=== PATIENT | female | born 1995 | race Caucasian/White ===

== ENCOUNTER 2017-01-06 05:04 | Emergency (ER) | payer OTHER ==
[2017-01-06 06:57] LABS: CALCIUM 9.6 mg/dL (8.5-10.1); CARBON DIOXIDE 28.1 mmol/L (21-32); CHLORIDE SERUM 102 mmol/L (98-107); CREATININE SERUM 0.9 mg/dL (0.6-1.0); GFR1 > 60 mL/min; GLUCOSE SERUM 81 mg/dL (74-106); POTASSIUM SERUM 3.6 mmol/L (3.5-5.1); SODIUM SERUM 141 mmol/L (136-145)
[2017-01-06 07:01] LABS: ALBUMIN 3.7 g/dL (3.4-5.0); ALKALINE PHOSPHATASE 74 U/L (46-116); ALT/SGPT 18 U/L (14-59); AST/SGOT 15 U/L (15-37); BILIRUBIN TOTAL 0.4 mg/dL (0.20-1.00)
[2017-01-06 07:02] LABS: BASOPHIL % 0.4 % (0-2); PLATELET COUNT 259 x10^3mcL (130-400)
[2017-01-06 07:04] LABS: RED CELL DISTRIBUTION WIDTH 14.8 % (11.5-14.5)
[2017-01-06 07:23] VITALS: BP 114/79
== END 2017-01-06 07:27 | disposition home or self-care (01) ==
LOC: ED 05:04
PROVIDERS: Emergency Medicine
DX: N39.0 Urinary tract infection, site not specified (principal); R11.10 Vomiting, unspecified
CPT/HCPCS: J1885; J2405; J7030

== ENCOUNTER 2017-03-07 12:30 | Emergency (ER) | payer OTHER ==
[~2017-03-07] VITALS: Ht 160 cm; Wt 71.2 kg
[2017-03-07 12:54] VITALS: BP 123/76; Ht 160 cm; Wt 71.2 kg
== END 2017-03-07 16:38 | disposition left against medical advice (07) ==
LOC: ED 12:30
DX: Z53.21 Procedure and treatment not carried out due to patient leaving prior to being seen by health care provider (principal)

== ENCOUNTER 2017-03-18 02:56 | Inpatient (IN) | payer OTHER ==
[~2017-03-18] VITALS: Ht 160 cm; Wt 70.8 kg
[2017-03-18 03:24] VITALS: Ht 160 cm; Wt 70.8 kg
[2017-03-18 04:40] LABS: BASOPHIL % 0.7 % (0-2); PLATELET COUNT 291 x10^3mcL (130-400); RED CELL DISTRIBUTION WIDTH 14.1 % (11.5-14.5)
[2017-03-18 05:17] LABS: ALBUMIN 4.2 g/dL (3.4-5.0); ALKALINE PHOSPHATASE 56 U/L (46-116); ALT/SGPT 19 U/L (14-59); AST/SGOT 16 U/L (15-37); BILIRUBIN TOTAL 0.7 mg/dL (0.20-1.00); CALCIUM 9.3 mg/dL (8.5-10.1); CARBON DIOXIDE 26.4 mmol/L (21-32); CHLORIDE SERUM 105 mmol/L (98-107); CREATININE SERUM 0.9 mg/dL (0.6-1.0); GFR1 > 60 mL/min; GLUCOSE SERUM 115 mg/dL (74-106); LIPASE 130 IU/L (73-393); SODIUM SERUM 143 mmol/L (136-145); TOTAL PROTEIN, SERUM 8.2 g/dL (6.4-8.2)
[2017-03-18 05:22] LABS: POTASSIUM SERUM 2.6 mmol/L (3.5-5.1)
[2017-03-18 09:15] LABS: MAGNESIUM 2.1 mg/dL (1.8-2.4); PHOSPHOROUS 3.1 mg/dL (2.5-4.9)
[2017-03-18 09:17] LABS: CHOLESTEROL/HDL RATIO 2.5
[2017-03-18 09:31] LABS: FREE T4 1.41 ng/dL (0.76-1.46); FREE THYROXINE INDEX 3.4 ug/dL (1.4-4.5); T3 TOTAL 1.63 ng/mL; T4(THYROXINE) 9.3 ug/dL (4.7-13.3)
[2017-03-18 09:37] VITALS: BP 127/74
[2017-03-18 09:42] VITALS: BP 127/74
[2017-03-18 13:11] LABS: microscopic required? YES; urine erythrocyte 3+ (NEGATIVE)
[2017-03-18 13:21] LABS: AMPHETAMINE QUAL UR NONE DETECTED (NEG <=1000)
[2017-03-18 13:45] VITALS: BP 113/78
[2017-03-18 18:06] VITALS: BP 106/74
[2017-03-19 06:20] VITALS: BP 117/73
[2017-03-19 07:38] LABS: CARBON DIOXIDE 25.2 mmol/L (21-32); CHLORIDE SERUM 109 mmol/L (98-107); CREATININE SERUM 0.8 mg/dL (0.6-1.0); GFR1 > 60 mL/min; GLUCOSE SERUM 73 mg/dL (74-106); MAGNESIUM 2.2 mg/dL (1.8-2.4); PHOSPHOROUS 4.7 mg/dL (2.5-4.9); POTASSIUM SERUM 3.4 mmol/L (3.5-5.1); SODIUM SERUM 143 mmol/L (136-145)
[2017-03-19 08:02] LABS: BASOPHIL % 0.5 % (0-2); PLATELET COUNT 230 x10^3mcL (130-400); RED CELL DISTRIBUTION WIDTH 14.5 % (11.5-14.5)
[2017-03-19 10:10] VITALS: BP 124/79
[2017-03-19 10:22] VITALS: BP 124/79
[2017-03-19] MEDS ORDERED: CIPRO500 MG PO (11:07)
[2017-03-19] MEDS ORDERED: LAC PO (11:08)
[2017-03-19] MEDS ORDERED: PROMETHAZI6.25 MG/5 PO (11:08)
== END 2017-03-19 12:35 | disposition home or self-care (01) | DRG 249 ==
LOC: ED 02:56 → DU 05:27 → EDBD 05:27 → DU 09:28
PROVIDERS: Emergency Medicine; Student in an Organized Health Care Education/Training Program
DX: K52.9 Noninfective gastroenteritis and colitis, unspecified (principal); G92 Toxic encephalopathy; E87.6 Hypokalemia; N39.0 Urinary tract infection, site not specified; R31.9 Hematuria, unspecified; F12.10 Cannabis abuse, uncomplicated
CPT/HCPCS: 83880; 84439; J0500; J0696; J2405; J2550; J3480; J7030; Q0092; Q0162; Q0163

== ENCOUNTER 2017-03-19 15:56 | Emergency (ER) | payer OTHER ==
[~2017-03-19] VITALS: Ht 160 cm; Wt 70.3 kg
[~2017-03-19 15:56] MED LIST: CIPRO500 MG PO; LAC PO; PROMETHAZI6.25 MG/5 PO
[2017-03-19 15:57] VITALS: Ht 160 cm; Wt 70.3 kg
[2017-03-19 16:52] LABS: BASOPHIL % 0.8 % (0-2); PLATELET COUNT 247 x10^3mcL (130-400); RED CELL DISTRIBUTION WIDTH 14.1 % (11.5-14.5)
[2017-03-19 17:10] LABS: microscopic required? YES; urine erythrocyte 3+ (NEGATIVE)
[2017-03-19 17:14] LABS: CALCIUM 9.1 mg/dL (8.5-10.1); CHLORIDE SERUM 106 mmol/L (98-107); CREATININE SERUM 0.8 mg/dL (0.6-1.0); GFR1 > 60 mL/min; GLUCOSE SERUM 86 mg/dL (74-106); POTASSIUM SERUM 3.1 mmol/L (3.5-5.1); SODIUM SERUM 142 mmol/L (136-145)
[2017-03-19 17:15] LABS: AMYLASE 58 U/L (25-115); LIPASE 120 IU/L (73-393)
[2017-03-19 17:28] LABS: AMPHETAMINE QUAL UR NONE DETECTED (NEG <=1000)
[2017-03-19 20:14] VITALS: BP 121/82
== END 2017-03-19 20:14 | disposition home or self-care (01) ==
LOC: ED 15:56
PROVIDERS: Emergency Medicine
DX: R10.9 Unspecified abdominal pain (principal); R11.10 Vomiting, unspecified; E87.6 Hypokalemia
CPT/HCPCS: J1630; J2060; J3480; J7030

== ENCOUNTER 2017-04-01 13:03 | Emergency (ER) | payer OTHER ==
[~2017-04-01] VITALS: Ht 160 cm; Wt 68.5 kg
[2017-04-01 13:09] VITALS: BP 139/95; Ht 160 cm; Wt 68.5 kg
== END 2017-04-01 16:13 | disposition home or self-care (01) ==
LOC: ED 13:03
DX: F41.9 Anxiety disorder, unspecified (principal); R11.2 Nausea with vomiting, unspecified; R63.0 Anorexia; F12.90 Cannabis use, unspecified, uncomplicated

== ENCOUNTER 2017-05-27 01:33 | Emergency (ER) | payer OTHER ==
[~2017-05-27] VITALS: Ht 160 cm; Wt 70.3 kg
[2017-05-27 01:46] VITALS: Ht 160 cm; Wt 70.3 kg
[2017-05-27 03:44] LABS: BASOPHIL % 0.7 % (0-2); PLATELET COUNT 258 x10^3mcL (130-400)
[2017-05-27 03:47] LABS: RED CELL DISTRIBUTION WIDTH 14.6 % (11.5-14.5)
[2017-05-27 04:14] LABS: microscopic required? YES; urine erythrocyte 3+ (NEGATIVE)
[2017-05-27 05:53] VITALS: BP 123/64
[2017-05-27 06:28] LABS: ALBUMIN 3.7 g/dL (3.4-5.0); ALKALINE PHOSPHATASE 52 U/L (46-116); ALT/SGPT 15 U/L (14-59); AST/SGOT 17 U/L (15-37); BILIRUBIN TOTAL 0.65 mg/dL (0.20-1.00); LIPASE 87 IU/L (73-393); TOTAL PROTEIN, SERUM 7.2 g/dL (6.4-8.2)
[2017-05-27 06:45] LABS: CALCIUM 9.2 mg/dL (8.5-10.1); CARBON DIOXIDE 22.8 mmol/L (21-32); CHLORIDE SERUM 102 mmol/L (98-107); CREATININE SERUM 0.9 mg/dL (0.6-1.0); GFR1 > 60 mL/min; GLUCOSE SERUM 92 mg/dL (74-106); POTASSIUM SERUM 3.1 mmol/L (3.5-5.1); SODIUM SERUM 137 mmol/L (136-145)
== END 2017-05-27 05:53 | disposition home or self-care (01) ==
LOC: ED 01:33
PROVIDERS: Emergency Medicine
DX: N39.0 Urinary tract infection, site not specified (principal)
CPT/HCPCS: 36415

== ENCOUNTER 2017-05-27 15:03 | Emergency (ER) | payer OTHER ==
[~2017-05-27] VITALS: Ht 160 cm; Wt 68.5 kg
[2017-05-27 15:16] VITALS: Ht 160 cm; Wt 68.5 kg
[2017-05-27 17:47] VITALS: BP 130/79
== END 2017-05-27 17:47 | disposition home or self-care (01) ==
LOC: ED 15:03
DX: N12 Tubulo-interstitial nephritis, not specified as acute or chronic (principal); E87.6 Hypokalemia
CPT/HCPCS: Q0162

== ENCOUNTER 2017-05-27 19:27 | Inpatient (IN) | payer OTHER ==
[~2017-05-27] VITALS: Ht 160 cm; Wt 71.7 kg
[2017-05-27 19:34] VITALS: Ht 160 cm; Wt 71.7 kg
[2017-05-27 22:44] LABS: BASOPHIL % 0.2 % (0-2); PLATELET COUNT 195 x10^3mcL (130-400); RED CELL DISTRIBUTION WIDTH 14.3 % (11.5-14.5)
[2017-05-27 22:58] LABS: CALCIUM 9.5 mg/dL (8.5-10.1); CARBON DIOXIDE 18.5 mmol/L (21-32); CHLORIDE SERUM 102 mmol/L (98-107); CREATININE SERUM 0.9 mg/dL (0.6-1.0); GFR1 > 60 mL/min; GLUCOSE SERUM 122 mg/dL (74-106); POTASSIUM SERUM 3.5 mmol/L (3.5-5.1); SODIUM SERUM 141 mmol/L (136-145)
[2017-05-27 23:03] LABS: ALBUMIN 4.2 g/dL (3.4-5.0); ALKALINE PHOSPHATASE 49 U/L (46-116); ALT/SGPT 19 U/L (14-59); AST/SGOT 24 U/L (15-37); TOTAL PROTEIN, SERUM 8.1 g/dL (6.4-8.2)
[2017-05-28 00:44] VITALS: BP 125/72
[2017-05-28 04:21] LABS: FREE T4 1.18 ng/dL (0.76-1.46); T4(THYROXINE) 8.9 ug/dL (4.7-13.3)
[2017-05-28 05:02] LABS: CHOLESTEROL/HDL RATIO 2.6; PHOSPHOROUS 4.6 mg/dL (2.5-4.9)
[2017-05-28 05:51] VITALS: BP 103/60
[2017-05-28 08:27] LABS: BASOPHIL % 0.3 % (0-2); PLATELET COUNT 230 x10^3mcL (130-400); RED CELL DISTRIBUTION WIDTH 14.7 % (11.5-14.5)
[2017-05-28 08:31] LABS: CALCIUM 8.7 mg/dL (8.5-10.1); CARBON DIOXIDE 20.1 mmol/L (21-32); CHLORIDE SERUM 102 mmol/L (98-107); CREATININE SERUM 0.9 mg/dL (0.6-1.0); GFR1 > 60 mL/min; GLUCOSE SERUM 92 mg/dL (74-106); POTASSIUM SERUM 3.4 mmol/L (3.5-5.1); SODIUM SERUM 139 mmol/L (136-145)
[2017-05-28 09:10] VITALS: BP 108/70
[2017-05-28 13:45] VITALS: BP 117/92
[2017-05-28 16:43] LABS: microscopic required? YES; urine erythrocyte TRACE (NEGATIVE)
[2017-05-28 16:56] VITALS: BP 110/66
[2017-05-28 17:19] LABS: AMPHETAMINE QUAL UR NONE DETECTED (NEG <=1000)
[2017-05-28 20:54] VITALS: BP 115/77
[2017-05-29 05:59] VITALS: BP 148/70
[2017-05-29 06:30] LABS: BASOPHIL % 0.4 % (0-2); PLATELET COUNT 219 x10^3mcL (130-400)
[2017-05-29 06:54] LABS: CALCIUM 8.8 mg/dL (8.5-10.1); CARBON DIOXIDE 22.4 mmol/L (21-32); CHLORIDE SERUM 107 mmol/L (98-107); CREATININE SERUM 0.8 mg/dL (0.6-1.0); GFR1 > 60 mL/min; GLUCOSE SERUM 71 mg/dL (74-106); MAGNESIUM 2.2 mg/dL (1.8-2.4); POTASSIUM SERUM 3.1 mmol/L (3.5-5.1); SODIUM SERUM 143 mmol/L (136-145)
[2017-05-29 08:28] VITALS: BP 108/67
[2017-05-29 09:34] LABS: T3 TOTAL 1.03 ng/mL
[2017-05-29 13:45] VITALS: BP 116/78
[2017-05-29 17:15] VITALS: BP 128/81
[2017-05-29 21:27] VITALS: BP 129/86
[2017-05-30 06:09] VITALS: BP 114/74
[2017-05-30 06:26] LABS: BASOPHIL % 0.5 % (0-2); PLATELET COUNT 221 x10^3mcL (130-400)
[2017-05-30 06:40] LABS: RED CELL DISTRIBUTION WIDTH 14.8 % (11.5-14.5)
[2017-05-30 07:19] LABS: CALCIUM 8.6 mg/dL (8.5-10.1); CARBON DIOXIDE 22.9 mmol/L (21-32); CHLORIDE SERUM 106 mmol/L (98-107); CREATININE SERUM 0.7 mg/dL (0.6-1.0); GFR1 > 60 mL/min; GLUCOSE SERUM 72 mg/dL (74-106); MAGNESIUM 2.1 mg/dL (1.8-2.4); PHOSPHOROUS 4.3 mg/dL (2.5-4.9); SODIUM SERUM 142 mmol/L (136-145)
[2017-05-30 08:34] VITALS: BP 106/72
[2017-05-30] MEDS ORDERED: LEVAQUIN750 MG PO (17:13)
[2017-05-30 17:32] VITALS: BP 117/73
[2017-05-30 17:52] VITALS: BP 117/73
== END 2017-05-30 18:28 | disposition home or self-care (01) | DRG 720 ==
LOC: ED 19:27 → DU 23:58 → MU 05-29 10:38
PROVIDERS: Emergency Medicine; Family Medicine; Family Medicine Sports Medicine
DX: A41.9 Sepsis, unspecified organism (principal); N17.0 Acute kidney failure with tubular necrosis; E86.0 Dehydration; F41.9 Anxiety disorder, unspecified; E66.3 Overweight; E87.6 Hypokalemia; R65.20 Severe sepsis without septic shock; D64.9 Anemia, unspecified; N30.91 Cystitis, unspecified with hematuria; Z53.29 Procedure and treatment not carried out because of patient's decision for other reasons; N12 Tubulo-interstitial nephritis, not specified as acute or chronic; F12.90 Cannabis use, unspecified, uncomplicated; Z79.899 Other long term (current) drug therapy; Z83.3 Family history of diabetes mellitus; Z68.28 Body mass index [BMI] 28.0-28.9, adult
CPT/HCPCS: 83880; 84439; J0696; J2060; J2270; J2405; J2550; J3480; J7030; Q0092

== ENCOUNTER 2017-05-31 15:49 | Emergency (ER) | payer OTHER ==
[~2017-05-31] VITALS: Ht 160 cm; Wt 68.0 kg
[~2017-05-31 15:49] MED LIST changes: +LEVAQUIN750 MG PO
[2017-05-31 16:17] VITALS: Ht 160 cm; Wt 68.0 kg
[2017-05-31 20:19] VITALS: BP 117/82
== END 2017-05-31 20:19 | disposition home or self-care (01) ==
LOC: ED 15:49
DX: N39.0 Urinary tract infection, site not specified (principal); F41.9 Anxiety disorder, unspecified; F12.90 Cannabis use, unspecified, uncomplicated
CPT/HCPCS: J7030

== ENCOUNTER 2017-05-31 21:41 | Emergency (ER) | payer OTHER ==
[2017-06-01 01:28] LABS: CALCIUM 9.6 mg/dL (8.5-10.1); CARBON DIOXIDE 20.8 mmol/L (21-32); CHLORIDE SERUM 103 mmol/L (98-107); CREATININE SERUM 0.9 mg/dL (0.6-1.0); GFR1 > 60 mL/min; GLUCOSE SERUM 86 mg/dL (74-106); POTASSIUM SERUM 3.1 mmol/L (3.5-5.1); SODIUM SERUM 142 mmol/L (136-145)
[2017-06-01 01:33] LABS: ALBUMIN 4.2 g/dL (3.4-5.0); ALKALINE PHOSPHATASE 48 U/L (46-116); ALT/SGPT 19 U/L (14-59); AMYLASE 46 U/L (25-115); AST/SGOT 18 U/L (15-37); BILIRUBIN TOTAL 0.77 mg/dL (0.20-1.00); TOTAL PROTEIN, SERUM 7.9 g/dL (6.4-8.2)
[2017-06-01 01:50] LABS: BASOPHIL % 0.2 % (0-2); PLATELET COUNT 262 x10^3mcL (130-400); RED CELL DISTRIBUTION WIDTH 14.5 % (11.5-14.5)
[2017-06-01 04:16] VITALS: BP 117/81
== END 2017-06-01 04:16 | disposition home or self-care (01) ==
LOC: ED 21:41
PROVIDERS: Emergency Medicine
DX: F41.9 Anxiety disorder, unspecified (principal); R11.2 Nausea with vomiting, unspecified
CPT/HCPCS: J2765

== ENCOUNTER 2017-06-01 12:56 | Emergency (ER) | payer OTHER ==
[~2017-06-01] VITALS: Ht 160 cm; Wt 65.8 kg
[2017-06-01 12:59] VITALS: Ht 160 cm; Wt 65.8 kg
[2017-06-01 14:59] LABS: CALCIUM 8.8 mg/dL (8.5-10.1); CARBON DIOXIDE 19.5 mmol/L (21-32); CHLORIDE SERUM 103 mmol/L (98-107); CREATININE SERUM 0.7 mg/dL (0.6-1.0); GFR1 > 60 mL/min; GLUCOSE SERUM 79 mg/dL (74-106); SODIUM SERUM 139 mmol/L (136-145)
[2017-06-01 15:02] LABS: POTASSIUM SERUM 2.9 mmol/L (3.5-5.1)
[2017-06-01 16:35] VITALS: BP 116/69
== END 2017-06-01 16:49 | disposition home or self-care (01) ==
LOC: ED 12:56
PROVIDERS: Emergency Medicine
DX: F12.188 Cannabis abuse with other cannabis-induced disorder (principal); R11.10 Vomiting, unspecified
CPT/HCPCS: J1200; J1630; J3480; J7030; J7050

== ENCOUNTER 2017-06-01 19:54 | Emergency (ER) | payer OTHER ==
[~2017-06-01] VITALS: Ht 160 cm; Wt 68.0 kg
[2017-06-01 20:01] VITALS: Ht 160 cm; Wt 68.0 kg
[2017-06-01 21:03] LABS: UA SPECIFIC GRAVITY 1.025 (1.005-1.035); microscopic required? YES; urine erythrocyte 3+ (NEGATIVE)
[2017-06-01 21:04] LABS: BASOPHIL % 0.2 % (0-2); PLATELET COUNT 261 x10^3mcL (130-400); RED CELL DISTRIBUTION WIDTH 14.5 % (11.5-14.5)
[2017-06-01 21:12] LABS: AMPHETAMINE QUAL UR NONE DETECTED (NEG <=1000)
[2017-06-01 21:14] LABS: ALBUMIN 4.2 g/dL (3.4-5.0); ALKALINE PHOSPHATASE 44 U/L (46-116); ALT/SGPT 18 U/L (14-59); AST/SGOT 14 U/L (15-37); BILIRUBIN TOTAL 0.7 mg/dL (0.20-1.00); CALCIUM 9.2 mg/dL (8.5-10.1); CARBON DIOXIDE 21.1 mmol/L (21-32); CREATININE SERUM 0.7 mg/dL (0.6-1.0); GFR1 > 60 mL/min; GLUCOSE SERUM 85 mg/dL (74-106); LIPASE 84 IU/L (73-393); TOTAL PROTEIN, SERUM 7.7 g/dL (6.4-8.2)
[2017-06-01 21:25] LABS: CHLORIDE SERUM 101 mmol/L (98-107); POTASSIUM SERUM 3.5 mmol/L (3.5-5.1); SODIUM SERUM 137 mmol/L (136-145)
[2017-06-02 05:19] VITALS: BP 116/79
== END 2017-06-02 05:00 | disposition home or self-care (01) ==
LOC: ED 19:54
PROVIDERS: Emergency Medicine
DX: R10.13 Epigastric pain (principal); R11.10 Vomiting, unspecified; F12.10 Cannabis abuse, uncomplicated; R07.89 Other chest pain; M54.9 Dorsalgia, unspecified
CPT/HCPCS: 83880; J1630; J2060; J3490; J7030

== ENCOUNTER 2017-06-04 00:55 | Emergency (ER) | payer OTHER ==
[~2017-06-04] VITALS: Ht 162.6 cm; Wt 64.4 kg
[2017-06-04 00:59] VITALS: Ht 162.6 cm; Wt 64.4 kg
[2017-06-04 03:23] VITALS: BP 136/84
== END 2017-06-04 03:28 | disposition home or self-care (01) ==
LOC: ED 00:55
DX: F12.188 Cannabis abuse with other cannabis-induced disorder (principal); R11.10 Vomiting, unspecified
CPT/HCPCS: J0515; J1200; J1630; J7030

== ENCOUNTER 2017-06-05 16:01 | Emergency (ER) | payer OTHER ==
[~2017-06-05] VITALS: Ht 160 cm; Wt 64.4 kg
[2017-06-05 16:13] VITALS: Ht 160 cm; Wt 64.4 kg
[2017-06-05 18:29] VITALS: BP 127/85
== END 2017-06-05 18:29 | disposition home or self-care (01) ==
LOC: ED 16:01
DX: F12.188 Cannabis abuse with other cannabis-induced disorder (principal); R11.10 Vomiting, unspecified
CPT/HCPCS: J0515; J1630; J1885; J7030

== ENCOUNTER 2017-08-01 07:58 | Emergency (ER) | payer OTHER ==
[~2017-08-01] VITALS: Ht 165.1 cm; Wt 64.0 kg
[2017-08-01 08:01] VITALS: Ht 165.1 cm; Wt 64.0 kg
[2017-08-01 09:13] LABS: microscopic required? NO
[2017-08-01 09:15] LABS: BASOPHIL % 0.3 % (0-2); PLATELET COUNT 211 x10^3mcL (130-400); RED CELL DISTRIBUTION WIDTH 14.7 % (11.5-14.5)
[2017-08-01 09:26] LABS: CALCIUM 9.4 mg/dL (8.5-10.1); CARBON DIOXIDE 20.8 mmol/L (21-32); CHLORIDE SERUM 104 mmol/L (98-107); CREATININE SERUM 0.9 mg/dL (0.6-1.0); GFR1 > 60 mL/min; GLUCOSE SERUM 140 mg/dL (74-106); POTASSIUM SERUM 3.7 mmol/L (3.5-5.1); SODIUM SERUM 137 mmol/L (136-145)
[2017-08-01 09:44] LABS: urine erythrocyte NEGATIVE (NEGATIVE)
[2017-08-01 12:41] VITALS: BP 128/84
== END 2017-08-01 13:37 | disposition home or self-care (01) ==
LOC: ED 07:58
PROVIDERS: Emergency Medicine
DX: O21.9 Vomiting of pregnancy, unspecified (principal); Z3A.00 Weeks of gestation of pregnancy not specified
CPT/HCPCS: J1200; J2765; J7030